=== PATIENT | male | born 1995 | race African-American/Black ===

== ENCOUNTER 2017-05-16 16:53 | Emergency (ER) | payer OTHER ==
[~2017-05-16] VITALS: Ht 182.9 cm; Wt 66.0 kg
[2017-05-16 17:30] VITALS: BP 128/78; PULSE 65; RESP 21; O2SAT 100
[2017-05-16] MEDS ORDERED: MORPHINE SULFATE 4 MG/ML INJ IV PUSH ONE (17:30)
[2017-05-16] MEDS ORDERED: SODIUM CHLORIDE 0.9% FLUSH 10 ML FLUSH IVF PRN (17:30)
[2017-05-16] MEDS ORDERED: ONDANSETRON HCL 4 MG/2 ML VIAL IVP ONE (17:30)
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
[2017-05-16] MEDS ORDERED: HYDR-3533 PO (19:18)
[2017-05-16] MEDS ORDERED: IOHEXOL 350 MG/ML 10 ML VIAL (for RAD DIAG) IV ONE (19:56)
[2017-05-16 20:24] VITALS: BP 107/59; PULSE 80; RESP 16; O2SAT 100
== END 2017-05-16 21:45 | disposition home or self-care (01) ==
LOC: NEPE 16:53
DX: S42.012A Anterior displaced fracture of sternal end of left clavicle, initial encounter for closed fracture (principal); S62.231A Other displaced fracture of base of first metacarpal bone, right hand, initial encounter for closed fracture; V49.49XA Driver injured in collision with other motor vehicles in traffic accident, initial encounter; Y92.410 Unspecified street and highway as the place of occurrence of the external cause
CPT/HCPCS: 29125; 70450; 71010; 71260; 72125; 72170; 73000; 73140; 96374; 96375; 99285; J2270; J2405; L3808; Q9967